=== PATIENT | male | born 1985 | race African-American/Black ===

== ENCOUNTER 2022-02-01 07:51 | Emergency (ER) | payer MEDICAID ==
[~2022-02-01] VITALS: Ht 175.3 cm; Wt 61.0 kg
[2022-02-01] MEDS ORDERED: CYCLOBENZAPRINE 10MG TABLET PO ONE (08:15)
[2022-02-01] MEDS ORDERED: IBUPROFEN 600MG TABLET PO ONE (08:15)
[2022-02-01 08:27] VITALS: BP 142/98
== END 2022-02-01 10:12 | disposition home or self-care (01) ==
LOC: ER 07:51
DX: M25.511 Pain in right shoulder (principal); M54.50 Low back pain, unspecified; W01.0XXA Fall on same level from slipping, tripping and stumbling without subsequent striking against object, initial encounter; Y93.89 Activity, other specified; Y92.89 Other specified places as the place of occurrence of the external cause; Y99.8 Other external cause status
CPT/HCPCS: 72100; 73030; 99284